=== PATIENT | female | born 1965 | race Caucasian/White ===

== ENCOUNTER → 2016-05-13 | Outpatient (CLI) | payer BC, OTHER ==
--- NOTE | 2016-05-13 17:37 | RAD ---
APPROVED REPORT Patient Location : OUT-PATIENT Indications Subramanian scale images of the bilateral greater and lesser saphenous veins were obtained as well as the sa phenofemoral junctions. No obvious thrombus is noted on limited imaging. The right great saphenous ve in measures proximally 7.3 mm and does not reflux. The right lesser saphenous vein measures 3.3 mm an d does not reflux. The left great saphenous vein measures approximate 7.4 mm and the left lesser saphenous vein measures 3.9 mm and both of these veins do not show any evidence of reflux. Multiple spider reticular veins are noted on the superficial aspect of the right calf. Critical Notification Critical Value: No <Conclusion> No evidence of reflux in the bilateral greater and lesser saphenous veins.
== END | disposition home or self-care (01) ==
LOC: US 13:16
PROVIDERS: ATTEND Internal Medicine Cardiovascular Disease
DX: I83.91 Asymptomatic varicose veins of right lower extremity (principal)
CPT/HCPCS: 93970

== ENCOUNTER 2016-07-30 23:26 | Emergency (ER) | payer OTHER ==
[~2016-07-30] VITALS: Ht 170.2 cm; Wt 74.8 kg
[2016-07-30] MEDS: IBUPROFEN 600 MG TABLET. PO ONE (23:45)
[2016-07-30] MEDS ORDERED: HYDROcodone/APAP 5/325MG 1 TAB TABLET PO ONE (23:45)
[2016-07-31] MEDS ORDERED: OXYMETAZOLINE 0.05% NASAL SPRAY 15ML BOTTLE. NS ONE
[2016-07-31] MEDS ORDERED: MORPHINE SULFATE 4 MG/ML DISP.SYRIN. IM ONE (00:15)
[2016-07-31] MEDS ORDERED: ONDANSETRON ODT 4 MG TAB.RAPDIS PO ONE (00:15)
[2016-07-31 00:31] VITALS: BP 129/89
[2016-07-31] MEDS ORDERED: predniSONE 20 MG TABLET PO ONE (01:00)
[2016-07-31] MEDS ORDERED: HYDR-971 PO (01:06)
[2016-07-31] MEDS ORDERED: METH4TAB2 PO (01:06)
--- NOTE | 2016-07-31 01:06 | PHYS DOC ---
Adult General Chief Complaint Chief Complaint: FACE PAIN HPI HPI Patient is a 51 year old female who presents with complaint of facial pain for the past 2 days. Patient states that she is having trouble with recurrent sinusitis. Patient had x-rays done earlier today that were ordered by her primary physician, Dr. Kapoor. Patient states that she was started on amoxicillin for treatment. Patient states that due to worsening pain she has been unable to sleep and came to the emergency department for help with pain control. Patient states her pain currently is "12 out of 10." The patient has been taking ibuprofen with no relief in symptoms. Patient denies any fevers. Patient states that she is having pain that refers into her right jaw. Review of Systems Review of Systems Constitutional: Denies fever or chills [] Eyes: Denies change in visual acuity, redness, or eye pain [] HENT: Nasal congestion, sinus pain [] Respiratory: Denies cough or shortness of breath [] Cardiovascular: Denies chest pain or edema [] GI: Denies abdominal pain, nausea, vomiting, bloody stools or diarrhea [] : Denies dysuria or hematuria [] Musculoskeletal: Denies back pain or joint pain [] Integument: Denies rash or skin lesions [] Neurologic: Denies headache, focal weakness or sensory changes [] Current Medications Current Medications Current Medications Medications (Trade) Dose Ordered Sig/Smitha Start Time Stop Time Status Last Admin Dose Admin Acetaminophen/ Hydrocodone Bitart (Lortab 5/325) 1 tab 1X ONCE 07/30/16 23:45 07/30/16 23:49 DC 07/30/16 23:45 1 TAB Ibuprofen (Motrin) 600 mg 1X ONCE 07/30/16 23:45 07/30/16 23:48 DC Morphine Sulfate (Morphine 4mg Syringe) 4 mg 1X ONCE 07/31/16 00:15 07/31/16 00:16 DC 07/31/16 00:07 4 MG Ondansetron HCl (Zofran Odt) 4 mg 1X ONCE 07/31/16 00:15 07/31/16 00:16 DC 07/31/16 00:07 4 MG Oxymetazoline HCl (Afrin) 2 spray 1X ONCE 07/31/16 00:00 07/31/16 00:01 DC 07/30/16 23:48 2 SPRAY Prednisone (Prednisone) 50 mg 1X ONCE 07/31/16 01:00 07/31/16 01:01 DC 07/31/16 00:48 50 MG Allergies Allergies Allergies Coded Allergies Type Severity Reaction Last Updated Verified No Known Drug Allergies 07/30/15 No Physical Exam Physical Exam Constitutional: Alert, afebrile, appears in moderate discomfort. [] HENT: Normocephalic, atraumatic, bilateral external ears normal, tenderness to palpation over right maxillary sinus, oropharynx moist, no oral exudates, nasal mucosal edema with clear rhinorrhea. [] Eyes: PERRLA, EOMI, conjunctiva normal, no discharge. [] Neck: Normal range of motion, no tenderness, supple, no stridor. [] Cardiovascular:Heart rate regular rhythm, no murmur [] Lungs & Thorax: Bilateral breath sounds clear to auscultation [] Abdomen: Bowel sounds normal, soft, no tenderness, no masses, no pulsatile masses. [] Skin: Warm, dry, no erythema, no rash. [] Back: No tenderness, no CVA tenderness. [] Extremities: No tenderness, no cyanosis, no clubbing, ROM intact, no edema. [] Neurologic: Alert and oriented X 3, normal motor function, normal sensory function, no focal deficits noted. [] Current Patient Data Lab Results Not performed EKG EKG None performed [] Radiology/Procedures Radiology/Procedures None performed [] Course & Med Decision Making Course & Med Decision Making Pertinent Labs and Imaging studies reviewed. (See chart for details) Patient was treated with Afrin, IM morphine, and oral [place] in the emergency department. The patient's symptoms have improved after treatment. Patient was started on a loading dose of prednisone. The patient will continue on outpatient treatment with [place] and Medrol Dosepak. Advised patient to continue on amoxicillin as prescribed. Recommended follow-up in 2-3 days with her primary doctor and return to emergency department for any worsening symptoms. Patient voiced understanding and in agreement with treatment plan. Dragon Disclaimer Dragon Disclaimer This chart was dictated in whole or in part using Voice Recognition software in a busy, high-work load, and often noisy Emergency Department environment. It may contain unintended and wholly unrecognized errors or omissions. Departure Departure: Impression: Primary Impression: Sinusitis Disposition: HOME, SELF-CARE Condition: IMPROVED Referrals: NEIL KAPOOR DO (PCP) Patient Instructions: Sinusitis Additional Instructions: Continue taking your amoxicillin as prescribed. Follow-up with your primary doctor in the next 2-3 days. Return to the emergency department for any worsening symptoms. Scripts Methylprednisolone (MEDROL) 4 Mg Tab.ds.pk 1 PKG PO UD, #1 PKG Prov: MAGDIEL GONSALES MD 07/31/16 Hydrocodone Bit/Acetaminophen (NORCO 5-325 TABLET) 1 Each Tablet 1-2 TAB PO Q4-6HRS Y for PAIN, #20 TAB Prov: MAGDIEL GONSALES MD 07/31/16 Problem Qualifiers Primary Impression: Sinusitis Sinusitis location: maxillary Chronicity: acute Recurrence: recurrent Qualified Codes: J01.01 - Acute recurrent maxillary sinusitis MAGDIEL GONSALES MD Jul 31, 2016 01:06
== END 2016-07-31 01:18 | disposition home or self-care (01) ==
LOC: ER 23:26
DX: J01.01 Acute recurrent maxillary sinusitis (principal)
CPT/HCPCS: 96372; 99284; J2270; J7512; Q0162

== ENCOUNTER → 2016-07-30 | Outpatient (CLI) | payer OTHER ==
[~2016-07-30] MED LIST: HYDR-971 PO; METH4TAB2 PO
--- NOTE | 2016-07-30 17:03 | RAD ---
Three-view paranasal sinus radiographs 07/30/2016 Clinical history: Right-sided sinus pain for 2 days. PA, Mcconnell and lateral digital radiographs of the paranasal sinuses were obtained. Mild to moderate mucosal thickening is seen involving the inferior aspect of both maxillary sinuses, right greater than left. A small fluid level is seen involving the left maxillary sinus. The frontal sinuses and sphenoid sinus are well aerated and are clear. No fracture is seen. Impression: Mild to moderate mucosal thickening is seen involving both maxillary sinuses, right greater than left. A small fluid level is seen involving the left maxillary sinus.
== END | disposition home or self-care (01) ==
LOC: DXRAD 13:53
PROVIDERS: ATTEND Family Medicine
DX: J34.89 Other specified disorders of nose and nasal sinuses (principal); R09.81 Nasal congestion
CPT/HCPCS: 70220

== ENCOUNTER → 2017-03-07 | Outpatient (CLI) | payer OTHER ==
[2017-03-07 13:24] LABS: BASO # 0.1 x10^3/uL (0.0-0.2); BASO % 2 % (0-3); EOS # 0.1 x10^3/uL (0.0-0.7); EOS % 1 % (0-3); HEMATOCRIT 41.1 % (36.0-47.0); HEMOGLOBIN 14.1 g/dL (12.0-15.5); LYMPH # 3.7 x10^3/uL (1.0-4.8); LYMPH % 48 % (24-48); MEAN CORPUSCULAR HEMOGLOBIN 31 pg (25-35); MEAN CORPUSCULAR HGB CONC 34 g/dL (31-37); MEAN CORPUSCULAR VOLUME 89 fL (79-100); MONO # 0.2 x10^3/uL (0.0-1.1); MONO % 3 % (0-9); NEUT # 3.6 x10^3uL (1.8-7.7); NEUT % 47 % (31-73); PLATELET COUNT 482 x10^3/uL (140-400); RED BLOOD COUNT 4.61 x10^6/uL (3.50-5.40); RED CELL DISTRIBUTION WIDTH 13.2 % (11.5-14.5); WHITE BLOOD COUNT 7.7 x10^3/uL (4.0-11.0)
[2017-03-07 13:31] LABS: ALBUMIN 4.3 g/dL (3.4-5.0); CALCIUM 9.8 mg/dL (8.5-10.1); CREATININE 0.9 mg/dL (0.6-1.0); GFR 66.5; POTASSIUM 3.6 mmol/L (3.5-5.1); TOTAL BILIRUBIN 0.5 mg/dL (0.2-1.0); TOTAL PROTEIN 8.4 g/dL (6.4-8.2)
[2017-03-08 13:50] LABS: FREE T4 1.13 ng/dL (0.76-1.46); THYROID STIM HORMONE (TSH) 0.748 uIU/mL (0.358-3.740)
== END | disposition home or self-care (01) ==
LOC: LAB 12:44
PROVIDERS: ATTEND Physician Assistant Medical
DX: F98.8 Other specified behavioral and emotional disorders with onset usually occurring in childhood and adolescence (principal); E55.9 Vitamin D deficiency, unspecified; R53.83 Other fatigue; R79.89 Other specified abnormal findings of blood chemistry
CPT/HCPCS: 36415; 80053; 80061; 82306; 82607; 82728; 83540; 83550; 84439; 84443; 84481; 85025

== ENCOUNTER → 2017-06-09 | Outpatient (CLI) | payer OTHER | END | disposition home or self-care (01) | LOC: LAB 08:01 | PROVIDERS: ATTEND Family Medicine | DX: E55.9 Vitamin D deficiency, unspecified (principal) | CPT/HCPCS: 82306 ==

== ENCOUNTER → 2017-09-28 | Outpatient (CLI) | payer OTHER ==
[2017-09-28 09:14] LABS: BASO # 0.1 x10^3/uL (0.0-0.2); BASO % 1 % (0-3); EOS # 0.1 x10^3/uL (0.0-0.7); EOS % 2 % (0-3); HEMATOCRIT 38.7 % (36.0-47.0); HEMOGLOBIN 13.2 g/dL (12.0-15.5); LYMPH # 3.4 x10^3/uL (1.0-4.8); LYMPH % 56 % (24-48); MEAN CORPUSCULAR HEMOGLOBIN 30 pg (25-35); MEAN CORPUSCULAR HGB CONC 34 g/dL (31-37); MEAN CORPUSCULAR VOLUME 89 fL (79-100); MONO # 0.2 x10^3/uL (0.0-1.1); MONO % 4 % (0-9); NEUT # 2.3 x10^3uL (1.8-7.7); NEUT % 37 % (31-73); PLATELET COUNT 434 x10^3/uL (140-400); RED BLOOD COUNT 4.35 x10^6/uL (3.50-5.40); RED CELL DISTRIBUTION WIDTH 13.2 % (11.5-14.5); WHITE BLOOD COUNT 6.2 x10^3/uL (4.0-11.0)
[2017-09-28 09:28] LABS: ALBUMIN 3.9 g/dL (3.4-5.0); CREATININE 0.9 mg/dL (0.6-1.0); GFR 66.3; POTASSIUM 3.9 mmol/L (3.5-5.1); TOTAL BILIRUBIN 0.8 mg/dL (0.2-1.0); TOTAL PROTEIN 7.7 g/dL (6.4-8.2)
[2017-09-28 10:20] LABS: SEDIMENTATION RATE 3 (0-25)
[2017-09-28 19:51] LABS: FREE T4 1.03 ng/dL (0.76-1.46); THYROID STIM HORMONE (TSH) 0.976 uIU/mL (0.358-3.740)
== END | disposition home or self-care (01) ==
LOC: LAB 08:05
PROVIDERS: ATTEND Physician Assistant Medical
DX: E55.9 Vitamin D deficiency, unspecified (principal); I25.10 Atherosclerotic heart disease of native coronary artery without angina pectoris; R53.83 Other fatigue; Z85.3 Personal history of malignant neoplasm of breast
CPT/HCPCS: 36415; 80053; 82306; 82607; 84439; 84443; 84481; 85025; 85651

== ENCOUNTER → 2017-10-26 | Outpatient (CLI) | payer OTHER ==
--- NOTE | 2017-10-26 09:25 | RAD ---
Paranasal sinuses, 4 views, 10/26/2017: HISTORY: Sinus congestion Comparison is made to a study from 07/30/2016. There is a persistent air-fluid level in the left maxillary sinus. Moderate mucosal thickening in the right maxillary sinus is similar to that seen on the previous study. The other paranasal sinuses appear clear. No bony abnormality is detected. IMPRESSION: Unchanged bilateral maxillary sinusitis with an air-fluid level in the left maxillary sinus. Electronically signed by: Silverio Oconnor MD (10/26/2017 9:21 AM) [facility]
== END | disposition home or self-care (01) ==
LOC: RAD 07:55
PROVIDERS: ATTEND Family Medicine
DX: J32.0 Chronic maxillary sinusitis (principal)
CPT/HCPCS: 70220

== ENCOUNTER → 2017-11-15 | Outpatient (CLI) | payer OTHER ==
[2017-11-04 11:00] VITALS: BP 129/73
[2017-11-15 09:16] LABS: BASO # 0.1 x10^3/uL (0.0-0.2); BASO % 1 % (0-3); EOS # 0.1 x10^3/uL (0.0-0.7); EOS % 2 % (0-3); HEMATOCRIT 38.7 % (36.0-47.0); HEMOGLOBIN 13.2 g/dL (12.0-15.5); LYMPH # 4.2 x10^3/uL (1.0-4.8); LYMPH % 66 % (24-48); MEAN CORPUSCULAR HEMOGLOBIN 30 pg (25-35); MEAN CORPUSCULAR HGB CONC 34 g/dL (31-37); MEAN CORPUSCULAR VOLUME 89 fL (79-100); MONO # 0.3 x10^3/uL (0.0-1.1); MONO % 4 % (0-9); NEUT # 1.7 x10^3uL (1.8-7.7); NEUT % 27 % (31-73); PLATELET COUNT 460 x10^3/uL (140-400); RED BLOOD COUNT 4.35 x10^6/uL (3.50-5.40); RED CELL DISTRIBUTION WIDTH 12.9 % (11.5-14.5); WHITE BLOOD COUNT 6.3 x10^3/uL (4.0-11.0)
[2017-11-15 10:05] LABS: % EOS 4 % (0-5); % LYMPHS 58 % (24-48); % MONOS 3 % (0-10); % SEGS 31 % (35-66); PLT ESTIMATE INCREASED (ADEQUATE)
[2017-11-15 10:31] LABS: % ATYL 4 % (0-0)
[2017-11-15 21:11] LABS: LUTEINIZING HORMONE 53.7 mIU/mL (.); PROGESTERONE <0.1 ng/mL (.)
[2017-11-18 03:13] LABS: ESTROGEN LEVEL 24 pg/mL (.)
== END | disposition home or self-care (01) ==
LOC: LAB 08:49
PROVIDERS: ATTEND Internal Medicine
DX: R53.83 Other fatigue (principal)
CPT/HCPCS: 36415; 82672; 82728; 83001; 83002; 83540; 84144; 85007; 85025; 86644; 86645; 86663; 86664

== ENCOUNTER → 2017-11-29 | Outpatient (CLI) | payer OTHER ==
[2017-11-04 11:00] VITALS: BP 129/73
[~2017-11-29] MED LIST changes: +IOHEXOL 300 MG/ML 75 ML VIAL. IV ONE
--- NOTE | 2017-11-29 13:27 | RAD ---
Examination: CT soft tissue neck with IV contrast HISTORY: History of enlarged lymph nodes for 2 weeks COMPARISON: None available TECHNIQUE: Axial CT images of the soft tissue neck were performed with IV contrast. Coronal and sagittal reformats are performed Exposure: One or more of the following individualized dose reduction techniques were utilized for this examination: 1. Automated exposure control 2. Adjustment of the mA and/or kV according to patient size 3. Use of iterative reconstruction technique FINDINGS: The visualized intracranial portion grossly appears unremarkable. The visualized parotid glands, masticators spaces, bilateral submandibular glands, carotid spaces, parapharyngeal spaces grossly appears unremarkable. The visualized vallecula, piriform sinuses grossly appears unremarkable. The visualized vocal cord grossly appears unremarkable. Small bilateral cervical level II lymph nodes the largest measuring 1.2 cm on the right. The visualized thyroid gland grossly appears unremarkable. The apical lungs are clear. Mild degenerative changes cervical spine particularly at C4-C5, C5-C6, C6-C7 vertebral levels. IMPRESSION: 1. Small bilateral cervical level II lymph nodes with the largest measuring 1.2 cm on the right. Electronically signed by: Luiz Flores MD (11/29/2017 1:24 PM) [id number]
[2017-11-29 15:12] LABS: BASO % 1 % (0-3); EOS % 1 % (0-3); HEMATOCRIT 39.6 % (36.0-47.0); HEMOGLOBIN 13.2 g/dL (12.0-15.5); LYMPH # 3.3 x10^3/uL (1.0-4.8); LYMPH % 52 % (24-48); MEAN CORPUSCULAR HEMOGLOBIN 30 pg (25-35); MEAN CORPUSCULAR HGB CONC 33 g/dL (31-37); MEAN CORPUSCULAR VOLUME 90 fL (79-100); MONO # 0.2 x10^3/uL (0.0-1.1); MONO % 3 % (0-9); NEUT # 2.8 x10^3uL (1.8-7.7); NEUT % 44 % (31-73); PLATELET COUNT 453 x10^3/uL (140-400); RED CELL DISTRIBUTION WIDTH 13.5 % (11.5-14.5); WHITE BLOOD COUNT 6.3 x10^3/uL (4.0-11.0)
[2017-11-29 15:22] LABS: ALBUMIN 4.1 g/dL (3.4-5.0); ALBUMIN/GLOBULIN RATIO 1.2 (1.0-1.7); CALCIUM 9.2 mg/dL (8.5-10.1); GFR 58.7; POTASSIUM 3.7 mmol/L (3.5-5.1); TOTAL BILIRUBIN 0.6 mg/dL (0.2-1.0); TOTAL PROTEIN 7.5 g/dL (6.4-8.2)
[2017-11-29 15:48] LABS: PLT ESTIMATE INCREASED (ADEQUATE)
[2017-11-30 13:25] LABS: FREE T4 1.15 ng/dL (0.76-1.46); THYROID STIM HORMONE (TSH) 1.126 uIU/mL (0.358-3.740)
== END | disposition home or self-care (01) ==
LOC: LAB 12:34
PROVIDERS: ATTEND Internal Medicine Hematology & Oncology
DX: D72.820 Lymphocytosis (symptomatic) (principal); D47.3 Essential (hemorrhagic) thrombocythemia
CPT/HCPCS: 70491; 80053; 83615; 85025; Q9967; 82728; 83540; 83550; 84439; 84443

== ENCOUNTER → 2017-12-07 | Outpatient (CLI) | payer OTHER ==
[2017-11-04 11:00] VITALS: BP 129/73
[~2017-12-07] MED LIST changes: -IOHEXOL 300 MG/ML 75 ML VIAL. IV ONE
--- NOTE | 2017-12-07 13:29 | RAD ---
DATE: 12/07/2017 EXAM: MAMMO JOJO SCREENING BILATERAL HISTORY: Routine screening, breast implants COMPARISON: 03/05/2016 This study was interpreted with the benefit of Computerized Aided Detection (CAD). Breast Density: HETERO The breast parenchyma is heterogenously dense, which could reduce sensitivity of mammography. Breast parenchyma level C. FINDINGS: Routine and implant exclusion 2-D views were obtained in CC and MLO projections. Implant exclusion 3-D tomosynthesis imaging was then performed in CC and MLO projections. The breast implants appear unchanged. There is a small superficial opacity projected over the inferior medial aspect of the left breast, better seen on the current 3-D images. A similar opacity is present on the left oblique view of the 04/12/2014 exam. The CC tomosynthesis imaging from 03/05/2016 showed that this nodule is related to the skin. No new breast densities are seen. No suspicious microcalcifications are evident. IMPRESSION: 1. Stable small skin related nodule in the inferomedial aspect of the left breast. Clinical correlation is suggested. 2. No mammographic evidence of malignancy in either breast. BI-RADS CATEGORY: 2 BENIGN FINDING(S) RECOMMENDED FOLLOW-UP: 12M 12 MONTH FOLLOW-UP PQRS compliance statement: Patient information was entered into a reminder system with a target due date for the next mammogram. Mammography is a sensitive method for finding small breast cancers, but it does not detect them all and is not a substitute for careful clinical examination. A negative mammogram does not negate a clinically suspicious finding and should not result in delay in biopsying a clinically suspicious abnormality. "Our facility is accredited by the [employer] Mammography Program."
== END | disposition home or self-care (01) ==
LOC: MAMMO 08:46
PROVIDERS: ATTEND Physician Assistant Medical
DX: Z12.31 Encounter for screening mammogram for malignant neoplasm of breast (principal)
CPT/HCPCS: 77063; 77067

== ENCOUNTER → 2018-04-03 | Outpatient (CLI) | payer OTHER ==
[2017-11-04 11:00] VITALS: BP 129/73
[~2018-04-03] MED LIST changes: +HYDR-3165 PO; -HYDR-971 PO
== END | disposition home or self-care (01) ==
LOC: LAB 08:06
PROVIDERS: ATTEND Physician Assistant Medical
DX: M54.5 Low back pain (principal); E78.5 Hyperlipidemia, unspecified; E55.9 Vitamin D deficiency, unspecified; G89.29 Other chronic pain
CPT/HCPCS: 80061; 82306